=== PATIENT | female | born 1970 | race Caucasian/White ===

== ENCOUNTER → 2016-04-15 | Outpatient (CLI) | payer BC | LOC: MW.CHFP 09:19 | PROVIDERS: ATTEND Physician Assistant | DX: R50.9 Fever, unspecified (principal) | CPT/HCPCS: 36415; 85025 ==

== ENCOUNTER 2021-06-10 12:46 | Emergency (ER) | payer BC | END 2021-06-10 15:14 | disposition home or self-care (01) | LOC: MW.ED 12:46 | DX: R20.2 Paresthesia of skin (principal); Z88.2 Allergy status to sulfonamides; Z79.899 Other long term (current) drug therapy; Z79.01 Long term (current) use of anticoagulants | CPT/HCPCS: 36415; 85610; 93971-26-RT; 93971-RT; 99284; 99284-25 ==

== ENCOUNTER 2022-03-13 07:04 | Day surgery (SDC) | payer BC ==
[~2022-03-13 07:04] MED LIST: Lactated Ringers 1,000 ML IV SCH
[2022-03-13] MEDS ORDERED: Propofol 200 MG/20 ML SDV ONE ×2 (07:30→08:58)
[2022-03-13] MEDS ORDERED: Lidocaine 2% 5 ML SDV ONE ×2 (08:25)
[2022-03-13] MEDS ORDERED: fentaNYL 100 MCG/2 ML SDV ONE (08:25)
== END 2022-03-13 09:55 | disposition home or self-care (01) ==
LOC: MW.SDS 07:04
PROVIDERS: ATTEND Surgery
DX: Z12.11 Encounter for screening for malignant neoplasm of colon (principal); K21.9 Gastro-esophageal reflux disease without esophagitis; K44.9 Diaphragmatic hernia without obstruction or gangrene; K29.70 Gastritis, unspecified, without bleeding; Q73.8 Other reduction defects of unspecified limb(s); K31.89 Other diseases of stomach and duodenum; E66.9 Obesity, unspecified; M19.90 Unspecified osteoarthritis, unspecified site; I26.99 Other pulmonary embolism without acute cor pulmonale; Z88.2 Allergy status to sulfonamides; Z79.899 Other long term (current) drug therapy; Z98.890 Other specified postprocedural states; Z68.38 Body mass index [BMI] 38.0-38.9, adult; Z79.01 Long term (current) use of anticoagulants
CPT/HCPCS: 43239; 45378; J2704; J3010; J7120; J3490